=== PATIENT | male | born 1965 | race Caucasian/White ===

== ENCOUNTER → 2017-04-21 | Outpatient (CLI) | payer OTHER ==
[~2017-04-21] MED LIST: REGADENOSON 0.4 MG/5 ML SYRINGE ONE
== END | disposition home or self-care (01) ==
LOC: CFH 08:15
PROVIDERS: ATTEND Internal Medicine Cardiovascular Disease
DX: I25.10 Atherosclerotic heart disease of native coronary artery without angina pectoris (principal); R93.1 Abnormal findings on diagnostic imaging of heart and coronary circulation
CPT/HCPCS: 78452; 93017; A9502; J2785

== ENCOUNTER 2019-10-01 15:46 | Outpatient (CLI) | payer OTHER | END 2019-10-01 23:59 | disposition home or self-care (01) | LOC: CFH 15:46 | PROVIDERS: ATTEND Internal Medicine Cardiovascular Disease | DX: I51.7 Cardiomegaly (principal) | CPT/HCPCS: 93306 ==

== ENCOUNTER 2020-04-28 13:39 | Outpatient (CLI) | payer OTHER ==
[~2020-04-28 13:39] MED LIST changes: +LIDOCAINE-MPF 1%, 5ML ONE; -REGADENOSON 0.4 MG/5 ML SYRINGE ONE
[2020-04-28] MEDS ORDERED: OMNIPAQUE 300 MG/ML, 10ML VIAL ONE (14:00)
[2020-04-28] MEDS ORDERED: LIDOCAINE-MPF 1%, 5ML ONE (14:26)
[2020-04-28] MEDS ORDERED: GADOTERATE 2.5 MMOL/5 ML VIAL ONE (14:42)
== END 2020-04-28 23:59 | disposition home or self-care (01) ==
LOC: RAD 13:39
PROVIDERS: ATTEND Orthopaedic Surgery
DX: M25.552 Pain in left hip (principal); S73.192A Other sprain of left hip, initial encounter; M94.252 Chondromalacia, left hip; X58.XXXA Exposure to other specified factors, initial encounter; Y93.89 Activity, other specified; Y92.89 Other specified places as the place of occurrence of the external cause; Y99.8 Other external cause status
CPT/HCPCS: 27093; 73525; 73722; A9575; Q9967

== ENCOUNTER 2020-09-23 09:19 | Day surgery (SDC) | payer OTHER ==
[~2020-09-23] VITALS: Ht 188 cm; Wt 95.0 kg
[2020-09-23] MEDS ORDERED: LIDOCAINE 2%, 20ML ONE (10:33)
[2020-09-23] MEDS ORDERED: MIDAZOLAM 1 MG/ML, 5ML ONE (10:33)
[2020-09-23] MEDS ORDERED: FENTANYL PF 100 MCG/2ML ONE (10:33)
[2020-09-23] MEDS ORDERED: ATOR40TA PO (12:45)
[2020-09-23] MEDS ORDERED: UBID100C41 PO (12:45)
[2020-09-23] MEDS ORDERED: OMEG1CAP6 PO (12:45)
[2020-09-23] MEDS ORDERED: VITA1TAB85 PO (12:46)
[2020-09-23] MEDS ORDERED: TEST1.25 TD (12:47)
== END 2020-09-23 15:04 | disposition home or self-care (01) ==
LOC: CACL 09:19
PROVIDERS: ATTEND Internal Medicine Cardiovascular Disease
DX: I20.8 Other forms of angina pectoris (principal); E78.5 Hyperlipidemia, unspecified; F41.9 Anxiety disorder, unspecified; E66.3 Overweight; Z68.28 Body mass index [BMI] 28.0-28.9, adult; Z79.899 Other long term (current) drug therapy; Z88.6 Allergy status to analgesic agent; Z98.890 Other specified postprocedural states; Z82.49 Family history of ischemic heart disease and other diseases of the circulatory system
CPT/HCPCS: 93458; 99156; C1760; C1769; C1894; J2250; J3010; Q9967